=== PATIENT | male | born 1955 | race Caucasian/White ===

== ENCOUNTER 2017-05-30 10:04 | Emergency (ER) | END 2017-05-30 15:27 | disposition home or self-care (01) ==

== ENCOUNTER 2018-08-09 01:14 | Emergency (ER) | payer MEDICARE, BC ==
[~2018-08-09] VITALS: Ht 177.8 cm; Wt 62.4 kg
[~2018-08-09 01:14] MED LIST: TRAM50TA2 PO
[2018-08-09 01:19] VITALS: Ht 177.8 cm; Wt 62.4 kg
[2018-08-09] MEDS ORDERED: SOD CHLORIDE 0.9% 500 ML IV STA (05:34)
[2018-08-09] MEDS ORDERED: morphine 4 MG/ML VIAL IV STA (06:10)
[2018-08-09] MEDS ORDERED: ONDANSETRON 4 MG INJ IV STA (06:10)
[2018-08-09] MEDS ORDERED: SOD CHLORIDE 0.9% 100 ML ONE (07:44)
[2018-08-09] MEDS ORDERED: IOHEXOL 300MG/ML 150 ML BTL ONE (07:44)
[2018-08-09] MEDS ORDERED: metroNIDAZOLE 500 MG/NS (PMX) 100 ML IVPB STA (08:38)
[2018-08-09] MEDS ORDERED: CIPROFLOXACIN 400MG/D5W 200 ML IVPB STA (08:38)
[2018-08-09] MEDS ORDERED: CIPR500T4 PO (11:00)
[2018-08-09] MEDS ORDERED: METR500T PO (11:00)
[2018-08-09] MEDS ORDERED: IBUP-1542 PO (11:03)
--- NOTE | 2018-08-09 11:42 | ERD ---
ER Documentation Chief Complaint Chief Complaint ABD PAIN WITH CONSTIPATION X4DAYS HPI This is a very pleasant 63-year-old male presents to the emergency department for abdominal pain. The patient indicates that the abdominal pain was an intermittent cramping pain . progressed to the left lower quadrant and became persistent over the past 4 days. He states he is been constipated. His last bowel movement was 2 days ago. He denies any hemoptysis hematemesis or melanotic stools. He said no fevers or shaking no chills. He states he had similar pain in the past when he was diagnosed with diverticulosis. He states there is no alleviating or exacerbating factors to the pain. He denies any chest pain. He has no shortness of breath. He did not take any analgesic medication for the pain. ROS All systems reviewed and are negative except as per history of present illness. Medications Home Meds Active Scripts Ibuprofen* (Ibuprofen*) 600 Mg Tablet, 600 MG PO Q6H PRN for PAIN LEVEL 6-10, #20 TAB Prov:LAURIE MEJIA MD 08/09/18 Metronidazole* (Flagyl*) 500 Mg Tablet, 500 MG PO TID for 10 Days, TAB Prov:LAURIE MEJIA MD 08/09/18 Ciprofloxacin Hcl* (Ciprofloxacin Hcl*) 500 Mg Tablet, 500 MG PO BID, #20 TAB Prov:LAURIE MEJIA MD 08/09/18 Discontinued Scripts Tramadol HCl (Tramadol HCl) 50 Mg Tablet, 50 MG PO Q6, #12 TAB Prov:DESI CRISTINA MD 05/30/17 Allergies Allergies: Coded Allergies: No Known Allergy (Unverified , 08/09/18) PMhx/Soc Medical and Surgical Hx: pt denies Surgical Hx History of Surgery: No Anesthesia Reaction: No Hx Neurological Disorder: No Hx Respiratory Disorders: No Hx Cardiac Disorders: No Hx Psychiatric Problems: No Hx Miscellaneous Medical Probl: Yes (DIVERTICULOSIS, ARTHRITIS) Hx Alcohol Use: Yes (socially) Hx Substance Use: No Hx Tobacco Use: Yes Smoking Status: Current every day smoker Physical Exam Vitals Vital Signs Date Temp Pulse Resp B/P (MAP) Pulse Ox O2 O2 Flow FiO2 Time Delivery Rate 08/09/18 53 18 127/68 99 Room Air 07:39 (87) 08/09/18 48 22 130/76 98 Room Air 05:26 (94) 08/09/18 98.4 61 18 128/75 97 01:19 (92) Physical Exam Constitutional:Well-developed. Well-nourished. HEENT:Normocephalic. Atraumatic.Pupils were equal round reactive to light. Respiratory: Not using accessory muscles of respiration.Lungs were clear to auscultation bilaterally. No rhonchi. No rales. No wheezing. Cardiovascular: Regular rate regular rhythm.No murmurs. No rubs were appreciated.S1, S2 normal. Distal pulses are palpable 2+ bilaterally. GI: Abdomen was soft. Left lower quadrant tenderness.. Non Distended. No pulsatile abdominal masses or bruits. No rebound. No guarding. Bowel sounds were present and normal. Muscle skeletal: Full range of motion of both the upper and lower extremities bilaterally.Normal muscle tone.No assymetrical calf tenderness or swelling. Skin: No petechia, no purpura. No lesions on the palms or the soles of the feet. No maculopapular rash. NEURO: Patient was alert, awake, orientated x3.No facial droop. Gait observed and normal with no ataxia.Speech had regular rate and rhythm. No focal neurological deficits. Result Diagram: 08/09/18 0602 08/09/18 0602 Results 24 hrs Laboratory Tests Test 08/09/18 06:02 White Blood Count 9.4 10^3/ul Red Blood Count 4.63 10^6/ul Hemoglobin 12.8 g/dl Hematocrit 39.1 % Mean Corpuscular Volume 84.4 fl Mean Corpuscular Hemoglobin 27.6 pg Mean Corpuscular Hemoglobin Concent 32.7 g/dl Red Cell Distribution Width 13.4 % Platelet Count 194 10^3/UL Mean Platelet Volume 9.9 fl Immature Granulocytes % 0.600 % Neutrophils % 69.4 % Lymphocytes % 15.9 % Monocytes % 9.6 % Eosinophils % 3.6 % Basophils % 0.9 % Nucleated Red Blood Cells % 0.0 /100WBC Immature Granulocytes # 0.060 10^3/ul Neutrophils # 6.5 10^3/ul Lymphocytes # 1.5 10^3/ul Monocytes # 0.9 10^3/ul Eosinophils # 0.3 10^3/ul Basophils # 0.1 10^3/ul Nucleated Red Blood Cells # 0.0 10^3/ul Sodium Level 140 mmol/L Potassium Level 3.9 mmol/L Chloride Level 106 mmol/L Carbon Dioxide Level 24 mmol/L Anion Gap 10 Blood Urea Nitrogen 13 mg/dl Creatinine 0.72 mg/dl Est Glomerular Filtrat Rate mL/min > 60 mL/min Glucose Level 98 mg/dl Calcium Level 9.3 mg/dl Total Bilirubin 0.6 mg/dl Direct Bilirubin 0.00 mg/dl Indirect Bilirubin 0.6 mg/dl Aspartate Amino Transf (AST/SGOT) 21 IU/L Alanine Aminotransferase (ALT/SGPT) 19 IU/L Alkaline Phosphatase 58 IU/L Total Protein 6.8 g/dl Albumin 3.9 g/dl Globulin 2.90 g/dl Albumin/Globulin Ratio 1.34 Lipase 78 U/L Current Medications Medications Dose Sig/Billie Start Time Status Last (Trade) Ordered Route PRN Stop Time Admin Dose Reason Admin Sodium 500 ml @ Q1H STAT 08/09/18 DC 08/09/18 Chloride 500 mls/hr IV 05:34 06:23 08/09/18 06:33 Morphine 4 mg ONCE STAT 08/09/18 DC 08/09/18 Sulfate IV 06:10 06:23 (morphine) 08/09/18 06:11 Ondansetron 4 mg ONCE STAT 08/09/18 DC 08/09/18 HCl (Zofran IV 06:10 06:22 Inj) 08/09/18 06:11 IV Flush 10 ml STK-MED 08/09/18 DC 08/09/18 (NS 10 ml) ONCE .ROUTE 07:44 08:01 08/09/18 07:45 Sodium 100 ml @ ud STK-MED 08/09/18 DC 08/09/18 Chloride ONCE .ROUTE 07:44 08:01 08/09/18 07:45 Iohexol 150 ml STK-MED 08/09/18 DC 08/09/18 (Omnipaque ONCE .ROUTE 07:44 08:02 300mg/ ml) 08/09/18 07:45 100 ml @ ONCE STAT 08/09/18 DC 08/09/18 Metronidazole 100 mls/hr IVPB 08:38 09:34 08/09/18 09:37 200 ml @ ONCE STAT 08/09/18 DC 08/09/18 Ciprofloxacin 200 mls/hr IVPB 08:38 11:07 / Dextrose 08/09/18 09:37 Procedures/MDM This patient presented to the emergency department with abdominal pain and was seen and evaluated by myself. My differential diagnosis included but was not limited to abdominal aortic aneurysm, appendicitis, pancreatitis, perforated peptic ulcer, perforated viscus, Boerhaaves syndrome or visceral pain such as diverticulitis, DKA, esophagitis, hepatitis or bowel obstruction. The patient was placed on a equipment monitor phototypesetting, continuous pulse oximetry, and IV access was established by nursing staff. The patient was given intravenous morphine and Zofran for analgesia control. CT scan of the abdomen on reviewed by myself indicate the following as well as the radiologist: 1. Nearly obstructing 4.7 cm distal sigmoid mass most likely representing diverticulitis. Following appropriate treatment for diverticulitis, s igmoidoscopy/colonoscopy should be considered to exclude colon carcinoma unless the patient has undergone such procedure recently. 2. Aortic atherosclerosis. The patient no leukocytosis. There is no severe left leg abnormalities. I indicated to patient that the findings could likely be diverticulitis and he did receive IV antibiotics including ciprofloxacin and Flagyl while in the emergency department. I also indicated that is adamantly important that the patient follows up as soon as possible to undergo colonoscopy and sigmoidoscopy as I could not rule out a neoplastic process. The patient indicated that they will be able to see the primary care physician to arrange for this procedure to be performed. He was sent home with motrin to take if needed for analgesic control in addition to ciprofloxacin and Flagyl Departure Diagnosis: Primary Impression: Diverticulitis Condition: Fair Patient Instructions: Diverticulitis LAURIE MEJIA MD Aug 09, 2018 11:42
[2018-08-09 12:33] VITALS: BP 98/61; PULSE 48; RESP 18
== END 2018-08-09 12:46 | disposition home or self-care (01) ==
LOC: E/R 01:14
DX: K57.32 Diverticulitis of large intestine without perforation or abscess without bleeding (principal); F17.210 Nicotine dependence, cigarettes, uncomplicated
CPT/HCPCS: 36415; 74177; 80053; 81001; 83690; 85025; 87040; 96374; 96375; 99285; J0744; J2270; J7040; Q9967